=== PATIENT | male | born 1990 | race African-American/Black ===

== ENCOUNTER 2017-01-22 01:49 | Emergency (ER) | payer OTHER ==
[~2017-01-22] VITALS: Ht 195.6 cm; Wt 84.3 kg
[2017-01-22] MEDS ORDERED: ONDANSETRON HCL 4MG/2ML VIAL IV STA (02:40)
[2017-01-22] MEDS ORDERED: MORPHINE SULFATE 4 MG/ML CPJ (NOT FOR IM USE) IV STA (02:40)
[2017-01-22 03:09] LABS: BASOPHILS % 0.5 % (0.0-2.0); DIFFERENTIAL COMMENT 0; EOSINOPHILS % 2.7 % (0.0-5.0); HEMATOCRIT. 40.1 % (42.0-52.0); HEMOGLOBIN. 13.2 g/dL (14.0-18.0); LYMPHOCYTES % 25.6 % (20.0-50.0); MEAN CORPUSCULAR HEMOGLOBIN 24.7 pg (28.0-32.0); MEAN CORPUSCULAR VOLUME 74.7 fL (80.0-94.0); MEAN PLATELET VOLUME 8.5 fl (7.4-10.4); MONOCYTES % 10.2 % (2.0-8.0); PLATELET 212 x1000/uL (130-400); RED BLOOD CELL COUNT 5.37 mill/uL (4.7-6.1); RED CELL DISTRIBUTION WIDTH 16.1 % (11.6-14.6); WHITE BLOOD COUNT 8.2 x1000/uL (4.5-11.0)
[2017-01-22 03:17] LABS: CARBON DIOXIDE 28 mEq/L (21-32); INDEX HEMOLYSI 2 (1-3); INDEX ICTERIC 1 (1-4); INDEX LIPEMIC 1 (1-3); eGFR > 60 mL/min (>60)
[2017-01-22 03:34] LABS: ALANINE AMINOTRANSFERASE 15 IU/L (13-61); ANION GAP 12; CALCIUM 9.4 mg/dL (8.5-10.1); CHLORIDE 103 mEq/L (98-107); UREA NITROGEN BLOOD 10 mg/dL (7-21)
[2017-01-22 04:54] LABS: CLARITY URINE CLEAR (CLEAR); COLOR URINE YELLOW (YELLOW); GLUCOSE URINE NEGATIVE (NEGATIVE); KETONES URINE NEGATIVE (NEGATIVE); LEUKOCYTE ESTERASE URINE TRACE (NEGATIVE); NITRITE URINE NEGATIVE (NEGATIVE); OCCULT BLOOD URINE NEGATIVE (NEGATIVE); PROTEIN URINE NEGATIVE (NEGATIVE); SPECIFIC GRAVITY URINE 1.031 (1.005-1.030)
[2017-01-22 05:07] LABS: SQUAMOUS EPITHELIAL CELL URINE NONE SEEN /lpf (RARE/1+)
[2017-01-22 05:10] VITALS: BP 123/75
[2017-01-22 05:13] LABS: BACTERIA URINE NONE SEEN; RBC URINE 0-2 /hpf (0-2)
== END 2017-01-22 05:10 | disposition home or self-care (01) ==
LOC: ER 01:49
DX: S39.011A Strain of muscle, fascia and tendon of abdomen, initial encounter (principal); F17.200 Nicotine dependence, unspecified, uncomplicated; F14.10 Cocaine abuse, uncomplicated; F12.10 Cannabis abuse, uncomplicated; X58.XXXA Exposure to other specified factors, initial encounter; Y93.89 Activity, other specified; Y92.89 Other specified places as the place of occurrence of the external cause; Y99.8 Other external cause status
CPT/HCPCS: 36415; 76870; 80053; 81001; 85025; 93976; 96374; 96375; 99285; J2270; J2405; Z7610

== ENCOUNTER 2021-07-10 14:35 | Emergency (ER) | payer OTHER ==
[~2021-07-10] VITALS: Ht 195.6 cm; Wt 79.0 kg
[2021-07-10] MEDS ORDERED: VISCOUS LIDOCAINE 2% 15 ML UDC PO STA (16:51)
[2021-07-10] MEDS ORDERED: MAGNESIUM/ALUMINUM HYDROXIDE/SIMETHICONE 30ML UDC PO STA (16:51)
[2021-07-10] MEDS ORDERED: DICYCLOMINE 10 MG/5 ML ORAL SYR PO STA (16:51)
[2021-07-10 17:31] VITALS: BP 110/66
== END 2021-07-10 17:32 | disposition home or self-care (01) ==
LOC: ER 14:35
DX: T17.428A Food in trachea causing other injury, initial encounter (principal); X58.XXXA Exposure to other specified factors, initial encounter; Y93.89 Activity, other specified; Y92.89 Other specified places as the place of occurrence of the external cause
CPT/HCPCS: 99284